=== PATIENT | male | born 1950 | race Caucasian/White ===

== ENCOUNTER 2017-12-12 06:36 | Day surgery (SDC) | payer OTHER ==
[2017-12-12] MEDS: OCUFEN 0.03% OPTH SOL OP PRN ×2 (07:15→07:30)
[2017-12-12] MEDS: AK-DILATE 10% OPTH SOL OP PRN ×3 (07:15→07:25)
[2017-12-12] MEDS: CYCLOGYL 2% OPTH OP PRN ×3 (07:15→07:25)
[2017-12-12] MEDS: TETRACAINE 0.5% UNIT-DOSE OP PRN ×3 (07:15→08:41)
[2017-12-12] MEDS ORDERED: DIAMOX PO STA (07:27)
[2017-12-12] MEDS ORDERED: LIDOCAINE 1% 20 ML MDV ID STA (07:27)
[2017-12-12] MEDS ORDERED: SUBLIMAZE ONE (08:35)
[2017-12-12] MEDS ORDERED: VERSED ONE (08:35)
[2017-12-12] MEDS ORDERED: BSS WITH EPINEPHRINE OP ONE (08:43)
[2017-12-12] MEDS ORDERED: VOLTAREN 0.1% OPTH SOL OP STA (09:03)
[2017-12-12] MEDS ORDERED: OCUFLOX 0.3% OPTH SOL OP STA (09:03)
--- NOTE | 2017-12-12 13:51 | OP ---
PREOPERATIVE DIAGNOSIS: ADVANCED NUCLEAR SCLEROTIC CATARACT, LEFT EYE. POSTOPERATIVE DIAGNOSIS: SAME. OPERATION PHACOEMULSIFICATION ASPIRATION OF CATARACT LEFT EYE. PLACEMENT OF POSTERIOR CHAMBER LENS. PHACO TIME 48.7 SECONDS AT 11% POWER. LENS MODEL TECNIS [id number]. DIOPTER 23.0D. TECHNIQUE: CLEAR CORNEA. ANESTHESIA: TOPICAL ANESTHESIA W/ANESTHESIA MONITORING. OPERATIVE REPORT: Topical anesthesia consisting of Tetracaine was applied to the cornea and Xylocaine Methyl Paraben free of MFP was injected intracamerally into the anterior chamber. The patient was then brought into the operating room , prepped and draped in the usual ophthalmic manner. A lid speculum was placed and the operating microscope was used. A paracentesis was made at the 3 o' clock position. A clear corneal incision was made just out to the limbus. The anterior chamber was entered just inside the clear cornea. Viscoelastic was injected into the anterior chamber. A capsulotomy was performed with a bent # 27 gauge needle. Phacoemulsification was then performed in the posterior chamber. After completion of the phacoemulsification, residual cortical material was aspirated with the irrigation-aspiration system. The posterior capsule was polished. Viscoelastic was injected into the anterior and posterior chambers to inflate the capsular bag. Lens were placed via an Unfolder system and stabilized in the bag. Viscoelastic was removed from the anterior chamber. The wound was checked for any leakage. The four sponges were removed from the fornix. Topical antibiotic steroid and nonsteroidal drops were also applied to the cornea. A Conner shield was applied. The patient left the operating room in good condition without any complications. INTRAOPERATIVE MEDICATIONS: Xylocaine Methyl Paraben Free MPF MTDD
[2017-12-12 15:01] VITALS: BP 138/67; TEMP 98.6
== END 2017-12-12 09:45 | disposition home or self-care (01) ==
LOC: SURG 06:36
PROVIDERS: ATTEND Ophthalmology
DX: H25.12 Age-related nuclear cataract, left eye (principal); E11.9 Type 2 diabetes mellitus without complications

== ENCOUNTER 2018-01-16 09:36 | Day surgery (SDC) ==
[2018-01-16] MEDS: TETRACAINE 0.5% UNIT-DOSE OP PRN ×3 (10:11→10:41)
[2018-01-16] MEDS: AK-DILATE 10% OPTH SOL OP PRN ×3 (10:11→10:22)
[2018-01-16] MEDS: OCUFEN 0.03% OPTH SOL OP PRN ×3 (10:12→10:41)
[2018-01-16] MEDS: CYCLOGYL 2% OPTH OP PRN ×3 (10:12→10:22)
[2018-01-16] MEDS ORDERED: DIAMOX PO STA (10:32)
[2018-01-16] MEDS ORDERED: LIDOCAINE 1% 20 ML MDV ID STA (10:32)
[2018-01-16] MEDS ORDERED: LIDOCAINE HCL 1% SDV INJ STA (10:32)
[2018-01-16] MEDS ORDERED: VERSED ONE (12:00)
[2018-01-16] MEDS ORDERED: BETADINE OPTH PREP OP ONE (12:12)
[2018-01-16] MEDS ORDERED: ADRENALIN 1:1000 SDV IR STA (12:13)
[2018-01-16 15:40] VITALS: BP 141/84
--- NOTE | 2018-01-17 14:01 | OP ---
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 POSTOPERATIVE DIAGNOSIS: SAME. OPERATION PHACOEMULSIFICATION ASPIRATION OF CATARACT RIGHT EYE. PLACEMENT OF POSTERIOR CHAMBER LENS. PHACO TIME 45.2 SECONDS AT 11% POWER. LENS MODEL TECMIKE [id number]. DIOPTER +22.5D. TECHNIQUE: CLEAR CORNEA. ANESTHESIA: TOPICAL ANESTHESIA W/ANESTHESIA MONITORING. OPERATIVE REPORT: Topical anesthesia consisting of Tetracaine was applied to the cornea and Xylocaine Methyl Paraben free of MFP was injected intracamerally into the anterior chamber. The patient was then brought into the operating room , prepped and draped in the usual ophthalmic manner. A lid speculum was placed and the operating microscope was used. A paracentesis was made at the 3 o' clock position. A clear corneal incision was made just out to the limbus. The anterior chamber was entered just inside the clear cornea. Viscoelastic was injected into the anterior chamber. A capsulotomy was performed with a bent # 27 gauge needle. Phacoemulsification was then performed in the posterior chamber. After completion of the phacoemulsification, residual cortical material was aspirated with the irrigation-aspiration system. The posterior capsule was polished. Viscoelastic was injected into the anterior and posterior chambers to inflate the capsular bag. Lens were placed via an Unfolder system and stabilized in the bag. Viscoelastic was removed from the anterior chamber. The wound was checked for any leakage. The four sponges were removed from the fornix. Topical antibiotic steroid and nonsteroidal drops were also applied to the cornea. A Conner shield was applied. The patient left the operating room in good condition without any complications. INTRAOPERATIVE MEDICATIONS: Xylocaine Methyl Paraben Free MPF MTDD
[2018-01-18 15:41] VITALS: TEMP 98.2
== END 2018-01-16 13:12 | disposition home or self-care (01) ==
LOC: SURG 09:36
PROVIDERS: ATTEND Ophthalmology
DX: H25.011 Cortical age-related cataract, right eye (principal)